=== PATIENT | female | born 1975 | race Caucasian/White ===

== ENCOUNTER → 2017-09-05 | Outpatient (CLI) | payer OTHER ==
--- NOTE | 2017-09-05 15:14 | MAMMOGRAPHY REPORT ---
BILATERAL DIGITAL DIAGNOSTIC MAMMOGRAM TOMOSYNTHESIS WITH CAD AND TARGETED RIGHT ULTRASOUND: 8 CLINICAL HISTORY: The patient had an injury to the right breast a few months ago within the last year , and had significant bruising on the right breast at that time. The patient reports her physician elissa king a palpable lump in the right breast during a routine clinical exam which was at the site of the p rior injury. TECHNIQUE: Breast tomosynthesis in addition to standard 2D mammography was performed. Current study was also evaluated with a Computer Aided Detection (CAD) system. Bilateral CC and MLO 2D and tomosyn thesis images were obtained. COMPARISON: Comparison is made to exam dated: 04/04/2016 and 04/01/2014 mammogram - [facility]. BREAST COMPOSITION: There are scattered areas of fibroglandular density in both breasts. FINDINGS: A triangle marker valdez the site of the palpable lump in the right upper outer quadrant. A t the site of the palpable lump there is a superficial ill-defined focal asymmetry which measures karson roximately 8 x 6 mm. The asymmetry is of mixed density including fat density. The remainder of both breasts demonstrate no suspicious masses, calcifications, or areas of architectural distortion. Sca ttered bilateral benign-appearing calcifications are noted. Asymmetry in the right lateral posterior breast on the cc view has the appearance of normal fibroglandular tissue on the tomosynthesis images . Targeted ultrasound was performed of the area of the palpable lump pointed out by the patient, in the right breast at approximately 1130, 4 cm from the nipple. At the site of the palpable lump there is a subdermal round circumscribed anechoic mass which measures 4 x 4 mm consistent with an oil cyst. Adjacent to this is a hypoechoic 7 x 4 x 5 mm mass and another round hypoechoic 2 mm mass. Given kaveh t the masses are of fat density on mammography and given the history of prior injury to this region, findings are benign and compatible with fat necrosis. IMPRESSION: ACR BI-RADS CATEGORY 2: BENIGN, TARGETED ULTRASOUND ACR BI-RADS CATEGORY 2: BENIGN The palpable lump in the right breast at approximately 1130 corresponds with benign fat necrosis on m ammography and ultrasound. There is no mammographic or targeted sonographic evidence of malignancy. Recommend clinical follow-up for the palpable right breast lump and recommend routine bilateral scre ening mammograms in one year. The patient has been verbally notified of the results. Approximately 10% of breast cancers are not detected with mammography. A negative mammographic report should not delay biopsy if a clinically suggestive mass is present. Nadia Fagan M.D. ah/:09/05/2017 10:03:09 Job Foreman: Christy ATKINSON(R)(M), [facility] letter sent: Normal 1/2 BI-RADS Code: ACR BI-RADS Category 2: Benign Ultrasound BI-RADS: ACR BI-RADS Category 2: Benign
== END | disposition home or self-care (01) ==
LOC: C.MAMM 08:55
DX: N63.10 Unspecified lump in the right breast, unspecified quadrant (principal)